=== PATIENT | male | born 1995 | race Caucasian/White ===

== ENCOUNTER 2017-07-30 22:27 | Emergency (ER) | payer SELFPAY ==
--- NOTE | 2017-07-30 23:13 | EDM.PDOC ---
ED HPI GENERAL MEDICAL PROBLEM - General Chief Complaint: Upper Extremity Injury/Pain Stated Complaint: PAIN LT ARM Time Seen by Provider: 07/30/17 22:42 - History of Present Illness INITIAL COMMENTS - FREE TEXT/NARRATIVE: HISTORY AND PHYSICAL: History of present illness: Patient 21-year-old male presents with concern of left upper extremity pain he states he noted some discoloration and ecchymosis or petechiae in the volar aspect of his left forearm he also noted now some tenderness and red streaking on the volar aspect of his humerus extending to his axilla rias tenderness and swollen nodes. He denies fever chills nausea vomiting does not recall any trauma any bug bites or any other concern. Review of systems: As per history of present illness and below otherwise all systems reviewed and negative. Past medical history: As per history of present illness and as reviewed below otherwise noncontributory. Surgical history: As per history of present illness and as reviewed below otherwise noncontributory. Social history: No reported history of drug or alcohol abuse. Family history: As per history of present illness and as reviewed below otherwise noncontributory. Physical exam: HEENT: Atraumatic, normocephalic, pupils reactive, negative for conjunctival pallor or scleral icterus, mucous membranes moist, throat clear, neck supple, nontender, trachea midline. Lungs: Clear to auscultation, breath sounds equal bilaterally, chest nontender. Heart: S1S2, regular, negative for clicks, rubs, or JVD. Abdomen: Soft, nondistended, nontender. Negative for masses or hepatosplenomegaly. Negative for costovertebral tenderness. Pelvis: Stable nontender. Genitourinary: Deferred. Rectal: Deferred. Extremities: Patient has some erythema on small hemorrhagic areas approximately 1-2 mm on the volar aspect of his distal left forearm is also noted to have a ascending lymphangitis involving his distal humerus on the volar aspect extending into his left axilla proximally with tenderness to palpation of his axillary nodes and some shoddy nodes noted. Neurovascular exam CMS unremarkable Neuro: Awake, alert, oriented. Cranial nerves II through XII unremarkable. Cerebellum unremarkable. Motor and sensory unremarkable throughout. Exam nonfocal. Diagnostics: CBC CMP x-ray left humerus and forearm blood culture 2 Therapeutics: To be determined Impression: #1 cellulitis with ascending lymphangitis Definitive disposition and diagnosis as appropriate pending reevaluation and review of above. left arm Pain Score (Numeric/FACES): 8 - Related Data Allergies Allergy/AdvReac Type Severity Reaction Status Date / Time No Known Allergies Allergy Verified 07/30/17 22:33 Home Meds: Home Meds . [No Known Home Meds] 07/30/17 [History] Past Medical History - Past Health History Medical/Surgical History: Denies Medical/Surgical History Psychiatric History: Reports: Depression Social & Family History - Family History Family Medical History: Noncontributory - Tobacco Use Smoking Status *Q: Former Smoker Used Tobacco, but Quit: Yes Month Tobacco Last Used: "2 years" - Caffeine Use Caffeine Use: Reports: Energy Drinks - Recreational Drug Use Recreational Drug Use: No Review of Systems - Review of Systems Review Of Systems: ROS reveals no pertinent complaints other than HPI. ED EXAM, GENERAL - Physical Exam Exam: See Below (See dictation) Course - Vital Signs Last Recorded V/S: Last Vital Signs Temp 36.4 C 07/30/17 22:30 Pulse 89 07/30/17 22:30 Resp 18 07/30/17 22:30 BP 143/94 H 07/30/17 22:30 Pulse Ox 97 07/30/17 22:30 - Orders/Labs/Meds Orders: Active Orders 24 hr Category Date Time Status Forearm 2V Lt [CR] Stat Exams 07/30/17 22:41 Taken Humerus Lt [CR] Stat Exams 07/30/17 22:41 Taken CULTURE BLOOD [BC] Stat Lab 07/30/17 22:53 Received CULTURE BLOOD [BC] Stat Lab 07/30/17 23:32 Received Blood Culture x2 Reflex Set [OM.PC] Stat Oth 07/30/17 22:42 Ordered Labs: Laboratory Tests 07/30/17 07/30/17 Range/Units 22:53 22:53 WBC 11.42 H (4.0-11.0) K/uL RBC 5.41 (4.50-5.90) M/uL Hgb 17.3 H (13.0-17.0) g/dL Hct 47.9 (38.0-50.0) % MCV 88.5 (80.0-98.0) fL MCH 32.0 (27.0-32.0) pg MCHC 36.1 (31.0-37.0) g/dL RDW Std Deviation 42.5 (28.0-62.0) fl RDW Coeff of [place] 13 (11.0-15.0) % Plt Count 183 (150-400) K/uL MPV 10.70 (7.40-12.00) fL Neut % (Auto) 51.0 (48.0-80.0) % Lymph % (Auto) 37.7 (16.0-40.0) % [place] % (Auto) 6.7 (0.0-15.0) % Eos % (Auto) 4.2 (0.0-7.0) % Baso % (Auto) 0.4 (0.0-1.5) % Neut # (Auto) 5.8 H (1.4-5.7) K/uL Lymph # (Auto) 4.3 H (0.6-2.4) K/uL [place] # (Auto) 0.8 (0.0-0.8) K/uL Eos # (Auto) 0.5 (0.0-0.7) K/uL Baso # (Auto) 0.0 (0.0-0.1) K/uL Nucleated RBC % 0.0 /100WBC Nucleated RBCs # 0 K/uL Sodium 141 (136-146) mmol/L Potassium 4.1 (3.5-5.1) mmol/L Chloride 108 (98-110) mmol/L Carbon Dioxide 24 (21-31) mmol/L BUN 12 (6.0-23.0) mg/dL Creatinine 1.0 (0.6-1.5) mg/dL Est Cr Clr Drug Dosing 120.65 mL/min Estimated GFR (MDRD) > 60.0 ml/min Glucose 86 (60-110) mg/dL Calcium 9.6 (8.8-10.8) mg/dL Total Bilirubin 0.4 (0.1-1.5) mg/dL AST 44 H (5-40) IU/L ALT 104 H (8-54) IU/L Alkaline Phosphatase 66 (40-150) Total Protein 7.5 (6.0-8.0) g/dL Albumin 4.3 (3.5-5.0) g/dL Globulin 3.2 (2.0-3.5) g/dL Albumin/Globulin Ratio 1.3 (1.3-2.8) Meds: Medications Discontinued Medications Generic Name Dose Route Start Last Admin Trade Name Venancio PRN Reason Stop Dose Admin Ceftriaxone Sodium 1,000 mg/ 4 mls @ 4 mls/sec 07/30/17 23:19 07/30/17 23:35 Lidocaine HCl IM 07/30/17 23:20 4 mls/sec ONETIME ONE Administration Departure - Departure Time of Disposition: 23:55 Disposition: Home, Self-Care 01 Condition: Good Clinical Impression: Lymphangitis - Discharge Information Referrals: PCP,None [Primary Care Provider] - Forms: ED Department Discharge Additional Instructions: The following information is given to patients seen in the emergency department who are being discharged to home. This information is to outline your options for follow-up care. We provide all patients seen in our emergency department with a follow-up referral. The need for follow-up, as well as the timing and circumstances, are variable depending upon the specifics of your emergency department visit. If you don't have a primary care physician on staff, we will provide you with a referral. We always advise you to contact your personal physician following an emergency department visit to inform them of the circumstance of the visit and for follow-up with them and/or the need for any referrals to a consulting specialist. The emergency department will also refer you to a specialist when appropriate. This referral assures that you have the opportunity for followup care with a specialist. All of these measure are taken in an effort to provide you with optimal care, which includes your followup. Under all circumstances we always encourage you to contact your private physician who remains a resource for coordinating your care. When calling for followup care, please make the office aware that this follow-up is from your recent emergency room visit. If for any reason you are refused follow-up, please contact the [facility] emergency department at and asked to speak to the emergency department charge nurse. [facility] [address] [place] [id number] Bactrim/clindamycin as prescribed follow-up 24 hours for reevaluation this can be either with clinic private medical doctor and/or return to the emergency department/Tylenol as directed - My Orders Last 24 Hours: My Active Orders 07/30/17 22:41 Forearm 2V Lt [CR] Stat Humerus Lt [CR] Stat 07/30/17 22:42 Blood Culture x2 Reflex Set [OM.PC] Stat 07/30/17 22:53 CULTURE BLOOD [BC] Stat 07/30/17 23:32 CULTURE BLOOD [BC] Stat - Assessment/Plan Last 24 Hours: My Active Orders 07/30/17 22:41 Forearm 2V Lt [CR] Stat Humerus Lt [CR] Stat 07/30/17 22:42 Blood Culture x2 Reflex Set [OM.PC] Stat 07/30/17 22:53 CULTURE BLOOD [BC] Stat 07/30/17 23:32 CULTURE BLOOD [BC] Stat
[2017-07-30] MEDS ORDERED: cefTRIAXone 1,000 MG in Lidocaine 1% 4 ML IM ONE (23:19)
[2017-07-30 23:24] LABS: CHLORIDE,CL 108 mmol/L (98-110); SODIUM,NA 141 mmol/L (136-146)
--- NOTE | 2017-07-31 10:20 | CR ---
EXAM DATE: 07/30/17 PATIENT'S AGE: 21 Patient: CATHERINE LOW Facility: [place], [place] Site . Site : 1995 Study: XRay Extremity Left humerus [id number]/27/2018 11:21:13 PM Ordering Physician: Doctor Li Final Report: INDICATION: Humerus Pain, bruising, swelling, no injury TECHNIQUE: Humerus radiograph 3 views left COMPARISON: None FINDINGS: Bones: No acute fractures or aggressive bone lesions are identified. Joints: The visualized glenohumeral and elbow joints are unremarkable, but the elbow joint is not profiled. If there is pain or tenderness in this region, dedicated views of the elbow are recommended. Soft tissues: The visualized hemithorax and soft tissues are unremarkable in appearance. No radiopaque foreign bodies are seen. IMPRESSION: 1. No acute osseous injuries or abnormalities are noted. Dictated by: James Nieto MD @ 07/30/2017 23:30:43 (Electronic Signature) Report Signed by Proxy. TAO
--- NOTE | 2017-07-31 10:21 | CR ---
EXAM DATE: 07/30/17 PATIENT'S AGE: 21 Patient: CATHERINE LOW Facility: [place], [place] Site . Site : 1995 Study: XRay Extremity Left forearm [id number]/27/2018 11:21:40 PM Ordering Physician: Doctor Li Final Report: INDICATION: Forearm Pain TECHNIQUE: Forearm radiograph 2 views left COMPARISON: None FINDINGS: Bones: No acute fractures or aggressive bone lesions are identified. Joints: The visualized radiocarpal and elbow joints are unremarkable, but the elbow joint is not profiled. If there is pain or tenderness in this region, dedicated views of the elbow are recommended. Soft tissues: Unremarkable. No radiopaque foreign bodies are seen. IMPRESSION: 1. No acute osseous injuries or abnormalities are noted. Dictated by: James Nieto MD @ 07/30/2017 23:31:05 (Electronic Signature) Report Signed by Proxy. TAO
== END 2017-07-31 00:20 | disposition home or self-care (01) ==
LOC: MW.ED 22:27
DX: L03.114 Cellulitis of left upper limb (principal); Z87.891 Personal history of nicotine dependence
CPT/HCPCS: 36415; 73060; 73090; 80053; 85025; 87040; 96372; 99284; J0696; 99283